=== PATIENT | male | born 1990 | race Caucasian/White ===

== ENCOUNTER 2016-08-17 16:02 | Emergency (ER) | payer OTHER ==
[~2016-08-17] VITALS: Ht 180.3 cm; Wt 100.0 kg
[~2016-08-17 16:02] MED LIST: LORA-446 PO; SERT25TA PO
[2016-08-17] MEDS ORDERED: IBUPROFEN 200 MG TABLET ONE (16:59)
[2016-08-17] MEDS ORDERED: IBUPROFEN 200 MG TABLET PO ONE (17:00)
[2016-08-17 17:30] VITALS: BP 128/76
== END 2016-08-17 19:11 | disposition home or self-care (01) ==
LOC: ED 19:05
DX: S00.81XA Abrasion of other part of head, initial encounter (principal); W19.XXXA Unspecified fall, initial encounter; Y93.89 Activity, other specified; Y99.8 Other external cause status; Y92.89 Other specified places as the place of occurrence of the external cause
CPT/HCPCS: 36415; 70450; 80307; 99285

== ENCOUNTER 2016-08-22 15:05 | Emergency (ER) | payer OTHER ==
[~2016-08-22] VITALS: Ht 185.4 cm; Wt 102.5 kg
[2016-08-22 15:21] VITALS: BP 115/58
[2016-08-22] MEDS ORDERED: ALPR2TAB5 PO (15:31)
== END 2016-08-22 19:33 | disposition home or self-care (01) ==
LOC: ED 19:00
DX: F10.129 Alcohol abuse with intoxication, unspecified (principal); F41.1 Generalized anxiety disorder
CPT/HCPCS: 99283

== ENCOUNTER 2020-01-11 20:19 | Emergency (ER) | payer SELFPAY ==
[~2020-01-11] VITALS: Ht 182.9 cm; Wt 85.0 kg
[~2020-01-11 20:19] MED LIST changes: +ALPR2TAB5 PO
--- NOTE | 2020-01-11 20:39 | NUR ---
PT STATES HE WAS SOBER FOR 56 DAYS AND STARTED BINGE DRINKING 3 DAYS AGO (01/08/2020). PT TEARFUL ASKING FOR SOMETHING TO "SEDATE" HIM. PT ON CONTINUOUS PULSE OXIMETRY. PT EDUCATED ON USE OF CALL LIGHT AND IMPORTANCE OF CALLING BEFORE GETTING OUT OF BED.
--- NOTE | 2020-01-11 21:06 | NUR ---
PT REMINDED TO GET IN BED. VS STABLE. CALL LIGHT IN PLACE. PT INSTRUCTED HOW TO USE CALL LIGHT. WILL CONTINUE TO MONITOR.
--- NOTE | 2020-01-11 21:28 | NUR ---
PT RESTING IN ROOM. PT IS NOT ABLE TO AMBULATE AT THIS TIME. VS STABLE. NO ACUTE DISTRESS NOTED. CALL LIGHT IN PLACE. WILL CONTINUE TO MONITOR.
--- NOTE | 2020-01-11 22:11 | NUR ---
PT WENT TO CT
--- NOTE | 2020-01-11 22:54 | NUR ---
PT TRYING TO CLIMB OUT OF BED MULTIPLE TIMES. PT IS NOT ABLE TO AMBULATE. PT IS A&OX1 TO SELF. PT REDIRECTED BACK TO BED MULTIPLE TIMES. VERBAL INSTRUCTION GIVEN WITH REASSURANCE. PT WILL NOT STAY IN BED. PT BY THE NURSING STATION. PT IS A HIGH FALL RISK. PT HAS BEEN DRINKING AND SMELLS OF ETOH. SPOKE WITH DR DIAZ. WANTS PATIENT IN RESTRAINTS FOR THE SAFETY OF THE PATIENT. SECURITY CALLED. RESTRAINTS ON LEFT WRIST AND RIGHT LEG. VS STABLE. NO ACUTE DISTRESS NOTED. WILL CONTINUE TO MONITOR.
--- NOTE | 2020-01-11 23:48 | NUR ---
PT IN TWO POINT RESTRAINTS. PT STILL TRYING TO CLIMB OUT OF BED. PT IS A&OX1. PT SMELLS OF ETOH. VERBAL REASSURANCE GIVEN. VS STABLE. WILL CONTINUE TO MONITOR.
--- NOTE | 2020-01-11 23:58 | NUR ---
PT MOVED TO ROOM 2. REPORT GIVEN TO NIKKIE MICHAELS
--- NOTE | 2020-01-12 01:23 | NUR ---
0000: FIRST CONTACT WITH PT, PT VERY INTOXICATED SLURRED SPEACH, TRYING TO GET UP OUT OF BED AND WALK AROUND. SAFETY CHECK UPDATED.
--- NOTE | 2020-01-12 01:24 | NUR ---
0100: PT IN LINE OF SIGHT OF SITTER, AGREES TO STAY IN BED. RESTRAINTS RELEASED, VSS, GIVEN FOOD/WATER. WILL CONTINUE TO MONITOR.
--- NOTE | 2020-01-12 02:05 | NUR ---
ASSUMING CARE OF PT. FROM NIKKIE MICHAELS. PT. PROVIDED WITH CRACKERS PER REQUEST.
--- NOTE | 2020-01-12 02:20 | NUR ---
RAFITA ANTUNEZ: PT. PROVIDED WITH SANDWICH AND MILK FROM [employer].
--- NOTE | 2020-01-12 03:02 | NUR ---
PT. SITTING AT [facility] AND PUTTING ON HIS SHOES. PT. ABLE TO TIE OWN SHOES. PT. WAS ABLE TO AMBULATE TO D/C DESK MAINTAINING OWN BODY WEIGHT. CAB VOUCHER PROVIDED FOR D/C HOME.
[2020-01-12 03:03] VITALS: BP 122/71
== END 2020-01-12 03:06 | disposition home or self-care (01) ==
LOC: ED 01-12 02:30
DX: S02.2XXA Fracture of nasal bones, initial encounter for closed fracture (principal); S09.90XA Unspecified injury of head, initial encounter; F10.220 Alcohol dependence with intoxication, uncomplicated; I10 Essential (primary) hypertension; Y90.9 Presence of alcohol in blood, level not specified; Y04.8XXA Assault by other bodily force, initial encounter; Y93.89 Activity, other specified; Y92.89 Other specified places as the place of occurrence of the external cause; Y99.8 Other external cause status
CPT/HCPCS: 70450; 70486; 99285

== ENCOUNTER 2020-01-16 23:22 | Day surgery (SDC) | payer OTHER ==
[~2020-01-16] VITALS: Ht 182.9 cm; Wt 75.0 kg
--- NOTE | 2020-01-16 23:32 | NUR ---
PLACED ON PULSE OX, B/P O2 88% WHEN PT SLEEPS, O2 2L NC. UP TO 100%, POS GAG REFLEX, AIRWAY CLEAR. PT WITH SLURRED SPEACH, SLOW TO RESPOND TO QUESTIONS ADMITS TO DRINKING BEER TONIGHT. BILAT TMJ PAIN.
--- NOTE | 2020-01-16 23:44 | NUR ---
REPORT TO STARLA LUNDY
[2020-01-17] MEDS ORDERED: KETAMINE 10 MG/ML, 20ML IV ONE
[2020-01-17] MEDS ORDERED: KETAMINE 10 MG/ML, 20ML ONE (00:21)
--- NOTE | 2020-01-17 02:15 | NUR ---
PT COMES IN WITH DISLOCATED JAW AND ETOH. ATTEMPT TO REDUCE, UNSUCCESSFUL. PT RESTING AT THIS TIME. PATIENT VSS, ON BREAKDOWN WORKER. OXYGEN VIA NC 2L. RESTING AT THIS TIME. WILL CON'T TO MONITOR.
--- NOTE | 2020-01-17 03:17 | NUR ---
report received from Kasey Bustillo. pt more awake, complaints of jaw pain. ice pack given. Awaiting surgeon to see pt. pt unable to close jaw completely, dry mucus membranes, oral care provided.
[2020-01-17] MEDS ORDERED: KETOROLAC 30 MG/1 ML ONE ×2 (03:40→07:07)
[2020-01-17 03:54] LABS: ALBUMIN 3.5 g/dL (3.4-5.0); ANION GAP 5 mmol/L (5-15); CALCIUM 8.1 mg/dL (8.5-10.1); CHLORIDE 107 mmol/L (98-107)
[2020-01-17 03:58] LABS: BASOPHILS % (AUTO) 0 % (0-1); EOSINOPHILS % (AUTO) 3 % (1-7); LYMPHOCYTES % (AUTO) 17 % (22-44); MEAN CORPUSCULAR HEMOGLOBIN 31.1 pg (27.5-34.5); MEAN CORPUSCULAR HGB CONC 33.2 g/dL (33.2-36.2); MEAN PLATELET VOLUME 7.3 fL (7.4-10.4); MONOCYTES % (AUTO) 6 % (2-9); NEUTROPHILS % (AUTO) 74 % (42-75); PLATELET COUNT 183 x10^3/uL (130-400); RED BLOOD COUNT 4.41 x10^6/uL (4.38-5.82); RED CELL DISTRIBUTION WIDTH 12.8 % (9.4-14.8)
[2020-01-17 03:59] LABS: ALANINE AMINOTRANSFERASE 75 U/L (12-78); ALKALINE PHOSPHATASE 86 U/L (45-117); BILIRUBIN,TOTAL 0.6 mg/dL (0.2-1.0); CREATININE 0.78 mg/dL (0.7-1.3); TOTAL PROTEIN 6.8 g/dL (6.4-8.2)
[2020-01-17 04:00] LABS: MD NO
[2020-01-17] MEDS ORDERED: KETOROLAC 30 MG/1 ML IVPush ONE (04:00)
--- NOTE | 2020-01-17 04:04 | NUR ---
PT SLEEPING IN [facility]. AWAITING SURGICAL CONSULT
[2020-01-17] MEDS ORDERED: ONDANSETRON 2MG/ML, 2ML ONE (05:20)
[2020-01-17] MEDS ORDERED: MORPHINE SULFATE 4 MG/ML, 1ML ONE (05:21)
[2020-01-17] MEDS ORDERED: MORPHINE SULFATE 4 MG/ML, 1ML IVPush PRN (05:30)
[2020-01-17] MEDS ORDERED: ONDANSETRON 2MG/ML, 2ML IVPush ONE (05:30)
--- NOTE | 2020-01-17 05:30 | NUR ---
assisted primary RN with care pt medicated for pain per order pt awaiting surgeon to bedside or eval, pt updated on POC
--- NOTE | 2020-01-17 05:50 | NUR ---
PT RESTING COMFORTABLY IN [facility], STILL HAVING JAW PAIN, MEDICATED PER EMAR.
--- NOTE | 2020-01-17 06:25 | NUR ---
rapid covid test sent to lab
[2020-01-17 06:29] VITALS: BP 116/74
[2020-01-17] MEDS ORDERED: PROPOFOL 10 MG/ML, 20ML ONE (07:03)
--- NOTE | 2020-01-17 07:15 | NUR ---
REPORT GIVEN TO OR NURSE. OR TECH HERE TO EQUIPMENT W[employer]ER PT
[2020-01-17] MEDS ORDERED: PROMETHAZINE 25 MG/ML, 1ML IVPush PRN (07:30)
[2020-01-17] MEDS ORDERED: ONDANSETRON 2MG/ML, 2ML IVPush PRN (07:30)
[2020-01-17] MEDS ORDERED: FENTANYL PF 100 MCG/2ML IV PRN (07:30)
[2020-01-17] MEDS ORDERED: OXYcodone 5 MG/5 ML ORAL.SOL UDC PO PRN (07:30)
[2020-01-17] MEDS ORDERED: HYDROmorphone 1 MG/ML, 1ML INJ IVPush PRN (07:30)
[2020-01-17] MEDS ORDERED: MEPERIDINE/PF 25MG/0.5ML IVPush PRN (07:30)
[2020-01-17] MEDS ORDERED: LABETALOL 5MG/ML, 20ML IV PRN (07:30)
[2020-01-17] MEDS ORDERED: ACETAMINOPHEN 325 MG TABLET PO PRN (07:30)
[2020-01-17] MEDS ORDERED: hydrALAzine 20 MG/ML, 1ML IV PRN (07:30)
[2020-01-17] MEDS ORDERED: EPHEDRINE 50 MG/ML, 1ML IVPush PRN (07:30)
== END 2020-01-17 09:45 | disposition home or self-care (01) ==
LOC: ED 01-17 05:54 → OUT 01-17 05:54 → ED 01-17 09:45
PROVIDERS: ATTEND Student in an Organized Health Care Education/Training Program
DX: S03.02XA Dislocation of jaw, left side, initial encounter (principal); Z20.828 Contact with and (suspected) exposure to other viral communicable diseases; I10 Essential (primary) hypertension; F10.129 Alcohol abuse with intoxication, unspecified; Z79.899 Other long term (current) drug therapy; X58.XXXA Exposure to other specified factors, initial encounter; Y93.89 Activity, other specified; Y92.89 Other specified places as the place of occurrence of the external cause; Y99.8 Other external cause status
CPT/HCPCS: 21480; 36415; 80053; 80307; 85025; 87635; 96374; 96375; 99285; J1885; J2270; J2405; J2704